=== PATIENT | female | born 1965 | race African-American/Black ===

== ENCOUNTER 2018-09-18 15:21 | Emergency (ER) | payer BC ==
--- NOTE | 2018-09-18 16:52 | RAD ---
RIGHT KNEE 4 VIEWS: Date: 09/18/18 HISTORY: Pain. Swelling. COMPARISON: None. FINDINGS: There is a small joint effusion. No acute displaced fracture or malalignment. Mild medial soft tissue swelling. IMPRESSION: Medial soft tissue swelling, likely a contusion. No acute displaced fracture or malalignment. POS: CET
== END 2018-09-18 16:13 | disposition home or self-care (01) ==
LOC: NAV ERS 15:21
DX: S80.01XA Contusion of right knee, initial encounter (principal); D50.9 Iron deficiency anemia, unspecified; F17.210 Nicotine dependence, cigarettes, uncomplicated; W22.03XA Walked into furniture, initial encounter

== ENCOUNTER 2019-12-22 01:02 | Emergency (ER) | payer BC, SELFPAY ==
[2019-12-22] MEDS ORDERED: Cyclobenzaprine 10 MG TAB ONE (01:48)
[2019-12-22] MEDS ORDERED: Ketorolac Tromethamine 60 MG/2 ML VIAL ONE (01:48)
[2019-12-22] MEDS ORDERED: Cyanide Antidote Kit ONE (01:48)
== END 2019-12-22 01:58 | disposition home or self-care (01) ==
LOC: NAV ERS 01:02
DX: M54.5 Low back pain (principal); F17.210 Nicotine dependence, cigarettes, uncomplicated
CPT/HCPCS: 99283; J1885

== ENCOUNTER 2021-03-11 14:07 | Outpatient (CLI) | payer BC | END 2021-03-11 14:08 | disposition home or self-care (01) | LOC: NAV RAD 14:07 | PROVIDERS: ATTEND Nurse Practitioner Family | DX: M25.512 Pain in left shoulder (principal) ==

== ENCOUNTER 2022-01-29 02:53 | Emergency (ER) | payer BC ==
[2022-01-29] MEDS ORDERED: Ketorolac Tromethamine 30 MG/ML VIAL ONE (03:25)
[2022-01-29] MEDS ORDERED: Cyclobenzaprine 10 MG TAB ONE (03:25)
[2022-01-29 03:33] LABS: Bilirubin Negative (Negative); Blood, Urine Negative (Negative); Clarity Clear (Clear); Glucose, Urine (Dipstick) Negative (Negative); Ketone, Urine Negative (Negative); Leukocyte Small (Negative); Nitrite Negative (Negative); Protein, Urine (Dipstick) Negative (Neg-Trace); Specific Gravity, Urine 1.025 (1.005-1.030); Urobilinogen 0.2 mg/dL (Less than 2)
[2022-01-29 03:38] LABS: Bacteria/HPF None Seen HPF (None Seen); RBC/HPF None Seen HPF (0-3); Squamous Epithelial None Seen HPF (0-3); WBC/HPF 0-3 HPF (0-3)
== END 2022-01-29 03:54 | disposition home or self-care (01) ==
LOC: NAV ERS 02:53
DX: S33.5XXA Sprain of ligaments of lumbar spine, initial encounter (principal); D50.9 Iron deficiency anemia, unspecified; F17.210 Nicotine dependence, cigarettes, uncomplicated; X50.9XXA Other and unspecified overexertion or strenuous movements or postures, initial encounter; Y92.096 Garden or yard of other non-institutional residence as the place of occurrence of the external cause
CPT/HCPCS: 81003; 81015; 96372; 99283; J1885

== ENCOUNTER 2022-06-09 13:20 | Emergency (ER) | payer BC ==
[2022-06-09] MEDS ORDERED: methylPREDNISolone Sod Succ 40 MG VIAL ONE (14:45)
[2022-06-09] MEDS ORDERED: Lidocaine 1% (PF) 30 ML VIAL ONE (14:45)
== END 2022-06-09 15:10 | disposition home or self-care (01) ==
LOC: NAV ERS 13:20
DX: M75.31 Calcific tendinitis of right shoulder (principal); F17.290 Nicotine dependence, other tobacco product, uncomplicated
CPT/HCPCS: 96372; J2001; J2920

== ENCOUNTER 2023-05-19 05:47 | Emergency (ER) | payer BC, OTHER | END 2023-05-19 06:30 | disposition home or self-care (01) | LOC: NAV ERS 05:47 | DX: S92.344A Nondisplaced fracture of fourth metatarsal bone, right foot, initial encounter for closed fracture (principal); I10 Essential (primary) hypertension; F17.290 Nicotine dependence, other tobacco product, uncomplicated; W22.8XXA Striking against or struck by other objects, initial encounter ==

== ENCOUNTER 2023-06-08 13:58 | Outpatient (CLI) | payer OTHER | END 2023-06-08 13:59 | disposition home or self-care (01) | LOC: NAV RAD 13:58 | PROVIDERS: ATTEND Nurse Practitioner Family | DX: S92.514A Nondisplaced fracture of proximal phalanx of right lesser toe(s), initial encounter for closed fracture (principal) ==